=== PATIENT | female | born 1995 | race Two or more races ===

== ENCOUNTER 2017-10-22 21:41 | Emergency (ER) | payer SELFPAY ==
[2017-10-23] MEDS ORDERED: MORPHINE SULFATE 10 MG/ML INJ IV ONE (00:05)
[2017-10-23] MEDS ORDERED: ONDANSETRON HCL INJ/PF 4 MG/2 ML SDV IV ONE (00:05)
[2017-10-23] MEDS ORDERED: RINGERS SOLUTION,LACTATED 1,000 ML IV ONE (00:05)
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
[2017-10-23] MEDS ORDERED: SILVER SULFADIAZINE 1% CREAM 400 GM TP ONE (00:26)
[2017-10-23] MEDS ORDERED: HYDROCODONE/ACETAMINOPHEN 5-325 MG (6 TAB/ER DISP) PO PRN (01:17)
[2017-10-23 01:30] VITALS: BP 105/54
== END 2017-10-23 01:33 | disposition home or self-care (01) ==
LOC: ER 21:41
DX: T23.392A Burn of third degree of multiple sites of left wrist and hand, initial encounter (principal); T23.262A Burn of second degree of back of left hand, initial encounter; T23.272A Burn of second degree of left wrist, initial encounter; T22.212A Burn of second degree of left forearm, initial encounter; T24.212A Burn of second degree of left thigh, initial encounter; T25.212A Burn of second degree of left ankle, initial encounter; X10.2XXA Contact with fats and cooking oils, initial encounter; Y93.G3 Activity, cooking and baking
CPT/HCPCS: 99285; 96361; 96374; 96375; J2270; J3490; J2405; J7120